=== PATIENT | female | born 1975 | race Caucasian/White ===

== ENCOUNTER 2018-04-12 05:15 | Inpatient (IN) ==
[2018-04-12] MEDS ORDERED: NS 1000 ML 1,000 ML ONE (05:58)
[2018-04-12] MEDS ORDERED: MORPHINE SULFATE INJ 4 MG ONE (05:58)
[2018-04-12] MEDS ORDERED: NS 1000 ML 1,000 ML IV SCH ×2 (06:00→08:11)
[2018-04-12] MEDS ORDERED: MORPHINE SULFATE INJ 4 MG IVP ONE (06:00)
--- NOTE | 2018-04-12 06:37 | DR.GENAD ---
HPI Time Seen Time Seen by Provider: 04/12/18 06:02 PCP Primary Care Physician: CECILE WU HPI Comment HPI Comment: PATIENT IS 43 YEARS OLD WHITE FEMALE WHO DEVELOPED RASH ON HER EXTREMITIES 1 WEEK AGO AND WAS [facility]. SHE WAS TREATED WITH ANTIBIOTICS AND TESTED FOR HIV WHICH WAS NEGATIVE. SHE WAS DISCHARGED HOME WITH MEDS BUT CONTINUED TO HAVE SWELLING, PAIN, AND INTENSE ITCHING. THE RASH IS ALSO GETTING WORSE. SHE IS HERE FOR FURTHER EVALUATION. Complaint/Symptoms Chief Complaint Doctors Comments: PURPURIC RASH AND PURITUS EXTREMITIES TIMES 1 WEEK. Chief Complaint:: PT STATES" I JUST GOT OUT OF THE HOSPITAL IN [place] 3 DAYS AGO WITH A BAD KIDNEY INFECTION I ALSO HAVE BLOOD BLISTERS ON MY LEGS AND MY ARMS IT ABURTO AND ITCHES" Nurses notes reviewed Nurses Notes Review: Yes Source History Provided: Patient Mode of Arrival Mode of Arrival: Wheelchair Timing Onset of Chief Complaint: 04/08/18 Duration Duration: Constant Duration: Weeks Location Location: EXTREMITIES Severity Severity: Severe Modifying Factors Improves:: ITCHING IMPROVES WITH MEDICATION PMH PMH Past Medical History: No Past Surgical History: Yes Surgical History: HAND POLISHER Surgery Past Surgical History Comment: TUBALIAGATION Family History History of Family Medical Conditions: Yes Family Medical History: Diabetes Mellitus, Cancer and Hypertension Social History Does patient currently use any type of tobacco product: No Have you used tobacco products in the last 12 months: No Type of Tobacco Use: None Does any household member use tobacco: No Alcohol Use: None Do you use any recreational Drugs:: No Lives With: Family Lives Where: Home infectious screening In the last 2 months have you had wt loss of >10#?: NO Have you had fever, night sweats or hemotysis?: No Have you traveled outside the country in the last 6 months?: No Isolation: Standard ROS Review of Systems Constitutional: Weakness and Fatigue Eyes: No Symptoms Reported ENTM: No Symptoms Reported Respiratoy: Non-Productive Cough Cardiovascular: No Symptoms Reported Gastrointestinal/Abdominal: No Symptoms Reported Genitourinary: No Symptoms Reported Neurological: Headache, Weakness and Dizziness Musculoskeletal: Joint Pain and Muscle Pain Integumentary: Change in Color, Rash, Itching and Wound Hematologic/Lymphatic: No Symptoms Reported Endocrine: No Symptoms Reported Psychiatric: No Symptoms Reported All Other Systems: Reviewed and Negative PE Vital Signs Vitals: Temperature 97.7 F Pulse Rate [Left Brachial] 93 Pulse Rate 100 Respiratory Rate 20 Blood Pressure [Left Arm] 109/52 Blood Pressure 115/51 O2 Sat by Pulse Oximetry 96 General Limitations: No Limitations General Appearance: Alert and In No Apparent Distress Head Head Exam: Normal Inspection Eyes Eye exam: Normal Appearance, PERRL and EOMI; negative Scleral Icterus and Conjunctival Injection ENT ENT Exam: Normal Exam, Normal Oropharynx, Normal External Ear Exam, Mucous Membranes Dry and TM's Normal Bilaterally External Ear Exam: Normal External Inspection TM/Canal Exam: Bilateral: Normal Nose Exam: Normal Nose Exam Mouth Exam: Normal Inspection Throat Exam: Normal Inspection Neck Neck Exam: Normal Inspection and Trachea Midline; negative Tenderness, Meningismus and Lymphadenopathy Chest Chest Inspection: Normal Inspection and Symmetric Chest Wall Rise Respiratory Respiratory Exam: Normal Lung Sounds Bilat Respiratory Exam: Bilateral: Clear to Auscultation Cardiovascular Cardiovascular Exam: Regular Rate, Normal Rhythm and Normal Heart Sounds Abdominal Exam Abdominal Exam: Normal Inspection, Normal Bowel Sounds and Soft; negative Tenderness Extremities Extremities Exam: Other (PURPURIC RASH EXTREMITIES IN VARIOUS STAGES OF HEALING WITH SWELLING AND TENDERNESS.) Back Back Exam: Normal Inspection Neurologic Neurological Exam: Alert, Oriented X3 and CN II-XII Intact; negative Motor Sensory Deficit Psychiatric Psychiatric Exam: Anxious Skin Skin Exam: Dry, Rash and Erythema MDM Differential Diagnosis Differential Diagnosis: RASH, VASCULITIS, STAPH INFECTION COURSE Treatment Treatment: SEE ORDERS Consultation Consultation Comments: DISCUSSED PATIENT WITH . HE WILL ADMIT PATIENT. Education/Counseling Education/Counseling: Patient Educated On: Diagnosis ROR Labs Reviewed Laboratory Results Reviewed?: Yes Result Diagrams: 04/12/18 06:25 04/12/18 06:25 Laboratory: WBC 13.2 X10^3/uL (3.6-10.0) H 04/12/18 06:25 RBC 4.05 X10^6/uL (3.5-5.4) 04/12/18 06:25 Hgb 12.2 g/dL (12.0-16.0) 04/12/18 06:25 Hct 35.1 % (36.0-47.0) L 04/12/18 06:25 MCV 86.6 fL (80.0-100.0) 04/12/18 06:25 MCH 30.2 pg (27.0-34.0) 04/12/18 06:25 MCHC 34.9 g/dL (33.0-35.0) 04/12/18 06:25 RDW 13.0 % (11.6-16.5) 04/12/18 06:25 Plt Count 134 X10^3/uL (150.0-450.0) L 04/12/18 06:25 MPV 9.2 fL (7.4-11.0) 04/12/18 06:25 Neut % (Auto) 73.9 % (42.0-75.0) 04/12/18 06:25 Lymph % (Auto) 11.4 % (21.0-51.0) L 04/12/18 06:25 [place] % (Auto) 6.6 % (0.0-13.0) 04/12/18 06:25 Eos % (Auto) 7.0 % (0.9-2.9) H 04/12/18 06:25 Baso % (Auto) 1.1 % (0.2-1.0) H 04/12/18 06:25 Neut # (Auto) 9.8 x10^3/uL (2.2-4.8) H 04/12/18 06:25 Lymph # (Auto) 1.5 X10^3/uL (1.3-2.9) 04/12/18 06:25 [place] # (Auto) 0.9 x10^3/uL (0.3-0.8) H 04/12/18 06:25 Eos # (Auto) 0.9 x10^3/uL (0.0-0.2) H 04/12/18 06:25 Baso # (Auto) 0.1 X10^3/uL (0.0-0.1) 04/12/18 06:25 Absolute Nucleated RBC 0.0 /100WBC 04/12/18 06:25 ESR 65 MM/HOUR (0-20) H 04/12/18 06:25 INR Target Range - 04/12/18 06:25 INR 1.25 (0.8-1.3) 04/12/18 06:25 Sodium 136 mmol/L (136-145) 04/12/18 06:25 Corrected Sodium TNP 04/12/18 06:25 Potassium 3.3 mmol/L (3.5-5.1) L 04/12/18 06:25 Chloride 101 mmol/L (98-107) 04/12/18 06:25 Carbon Dioxide 20.3 mmol/L (21-32) L 04/12/18 06:25 BUN 15 mg/dL (7-18) 04/12/18 06:25 Creatinine 2.28 mg/dL (0.55-1.02) H 04/12/18 06:25 Est GFR (MDRD) Af Amer 30 (>60) L 04/12/18 06:25 Est GFR (MDRD) Non-Af 25 (>60) L 04/12/18 06:25 Glucose 85 mg/dL (65-99) 04/12/18 06:25 Lactic Acid 1.1 mmol/L (0.4-2.0) 04/12/18 06:25 Calcium 8.5 mg/dL (8.5-10.1) 04/12/18 06:25 Corrected Calcium 9.7 mg/dL (8.5-10.1) 04/12/18 06:25 Total Bilirubin 0.70 mg/dL (0.2-1.0) 04/12/18 06:25 AST 39 Units/L (15-37) H 04/12/18 06:25 ALT 28 Units/L (12-78) 04/12/18 06:25 Alkaline Phosphatase 79 Units/L (46-116) 04/12/18 06:25 Creatine Kinase 209 Units/L (26-192) H 04/12/18 06:25 C-Reactive Protein 92.50 mg/L (0-3.0) H 04/12/18 06:25 Total Protein 7.1 g/dL (6.4-8.2) 04/12/18 06:25 Albumin 2.5 g/dL (3.4-5.0) L 04/12/18 06:25 Globulin 4.6 g/dL (2.5-4.5) H 04/12/18 06:25 Albumin/Globulin Ratio 0.5 Ratio (1.1-2.1) L 04/12/18 06:25 Amylase 40 Units/L (25-115) 04/12/18 06:25 Lipase 112 Units/L (73-393) 04/12/18 06:25 Specimen Type Clean catch urine 04/12/18 06:09 Urine Color [place] (YELLOW) 04/12/18 06:09 Urine Appearance Slightly hazy (CLEAR) 04/12/18 06:09 Urine pH Cancelled 04/12/18 06:09 Ur Specific [place] Cancelled 04/12/18 06:09 Urine Protein Cancelled 04/12/18 06:09 Urine Glucose (UA) Cancelled 04/12/18 06:09 Urine Ketones Cancelled 04/12/18 06:09 Urine Occult Blood Cancelled 04/12/18 06:09 Urine Nitrite Cancelled 04/12/18 06:09 Urine Bilirubin Cancelled 04/12/18 06:09 Urine Urobilinogen Cancelled 04/12/18 06:09 Ur Leukocyte Esterase Cancelled 04/12/18 06:09 Urine RBC 3-5 /HPF (NONE SEEN) 04/12/18 06:09 Urine WBC 5-10 /HPF (NONE SEEN) 04/12/18 06:09 Ur Squamous Epith Cells Many /HPF (NEGATIVE) 04/12/18 06:09 Amorphous Sediment 1+ /HPF (NEGATIVE) 04/12/18 06:09 Urine Bacteria Trace /HPF (NEGATIVE) 04/12/18 06:09 Ur Culture Indicated? No/not indicated 04/12/18 06:09 Urine Opiates Screen Negative (NEG=<300) 04/12/18 06:09 Urine Methadone Screen Negative (NEG=<300) 04/12/18 06:09 Ur Barbiturates Screen Negative (NEG=<200) 04/12/18 06:09 Ur Phencyclidine Scrn Negative (NEG=<25) 04/12/18 06:09 Ur Amphetamines Screen Positive (NEG=<1000) A 04/12/18 06:09 U Benzodiazepines Scrn Negative (NEG=<200) 04/12/18 06:09 Urine Cocaine Screen Negative (NEG=<300) 04/12/18 06:09 U Marijuana (THC) Screen Negative (NEG=<50) 04/12/18 06:09 Diagnosis Discharge Problem: Vasculitis
[2018-04-12 06:45] LABS: BASOPHILS # (AUTO) 0.1 X10^3/uL (0.0-0.1); BASOPHILS % (AUTO) 1.1 % (0.2-1.0); EOSINOPHILS # (AUTO) 0.9 x10^3/uL (0.0-0.2); HEMATOCRIT 35.1 % (36.0-47.0); HEMOGLOBIN 12.2 g/dL (12.0-16.0); LYMPHOCYTES # (AUTO) 1.5 X10^3/uL (1.3-2.9); LYMPHOCYTES % (AUTO) 11.4 % (21.0-51.0); MEAN CORPUSCULAR HEMOGLOBIN 30.2 pg (27.0-34.0); MEAN CORPUSCULAR HGB CONC 34.9 g/dL (33.0-35.0); MEAN CORPUSCULAR VOLUME 86.6 fL (80.0-100.0); MEAN PLATELET VOLUME 9.2 fL (7.4-11.0); MONOCYTES # (AUTO) 0.9 x10^3/uL (0.3-0.8); MONOCYTES % (AUTO) 6.6 % (0.0-13.0); NEUTROPHILS # (AUTO) 9.8 x10^3/uL (2.2-4.8); NEUTROPHILS % (AUTO) 73.9 % (42.0-75.0); PLATELET COUNT 134 X10^3/uL (150.0-450.0); RED BLOOD COUNT 4.05 X10^6/uL (3.5-5.4); WHITE BLOOD COUNT 13.2 X10^3/uL (3.6-10.0)
[2018-04-12 06:54] LABS: ALANINE AMINOTRANSFERASE 28 Units/L (12-78); ALBUMIN 2.5 g/dL (3.4-5.0); ALKALINE PHOSPHATASE 79 Units/L (46-116); ASPARTATE AMINO TRANSFERASE 39 Units/L (15-37); BLOOD UREA NITROGEN 15 mg/dL (7-18); CALCIUM 8.5 mg/dL (8.5-10.1); CARBON DIOXIDE 20.3 mmol/L (21-32); CHLORIDE 101 mmol/L (98-107); COR CA(FOR HYPOALB) 9.7 mg/dL (8.5-10.1); CREATININE 2.28 mg/dL (0.55-1.02); SODIUM 136 mmol/L (136-145); TOTAL PROTEIN 7.1 g/dL (6.4-8.2); eGFR NON BLACK RACES 25 (>60)
[2018-04-12 07:01] LABS: APPEARANCE,URINE SLIGHTLY HAZY (CLEAR); BACTERIA,URINE TRACE /HPF (NEGATIVE); COLOR,URINE ORANGE (YELLOW); SQUAMOUS EPITHELIAL CELL,UR MANY /HPF (NEGATIVE)
[2018-04-12 07:01] LABS: LACTIC ACID 1.1 mmol/L (0.4-2.0)
[2018-04-12 07:02] LABS: AMORPHOUS SEDIMENT,UR 1+ /HPF (NEGATIVE)
[2018-04-12] MEDS ORDERED: SOLU-Medrol 125 MG VIAL ONE (07:10)
[2018-04-12] MEDS ORDERED: BENADRYL INJ 50 MG VIAL ONE (07:11)
[2018-04-12] MEDS ORDERED: BENADRYL INJ 50 MG VIAL IVP ONE (07:22)
[2018-04-12] MEDS ORDERED: SOLU-Medrol 125 MG VIAL IVP ONE (07:22)
[2018-04-12] MEDS ORDERED: TORADOL 60 MG VIAL IVP PRN (08:11)
[2018-04-12] MEDS ORDERED: TORADOL 15 MG VIAL IVP PRN (08:13)
[2018-04-12 08:35] LABS: AMYLASE 40 Units/L (25-115); LIPASE 112 Units/L (73-393)
[2018-04-12] MEDS ORDERED: NS 500 ML IV 500 ML IV ONE (09:29)
[2018-04-12] MEDS ORDERED: ZITHROMAX INJ 500 MG VIAL 500 MG in NS 250 ML IV 250 ML IV SCH (09:55)
[2018-04-12] MEDS ORDERED: LEVAQUIN PREMIX IV 500 MG 500 MG/100 ML BAG IV SCH (10:00)
[2018-04-12] MEDS ORDERED: ROCEPHIN VIAL 1 GRAM IVP SCH (10:00)
[2018-04-12] MEDS ORDERED: XYLOCAINE 2 % (PLAIN) ONE (11:13)
--- NOTE | 2018-04-12 11:35 | RAD ---
Chest, two views Indication: Fever Comparison: None Findings: The heart is normal in size. No focal infiltrate, effusion or pneumothorax is identified. T here is no acute osseous abnormality. Impression: No acute cardiopulmonary abnormality. Reported By:
[2018-04-12] MEDS: NS 1000 ML 1,000 ML IV SCH ×2 (11:36→23:45)
--- NOTE | 2018-04-12 11:51 | RAD ---
Chest, one view Indication: Central line placement Comparison: Radiograph from earlier today Findings: A left subclavian CVL terminates over the cavoatrial junction without pneumothorax. The hea rt is normal in size. No focal infiltrate or significant effusion is identified. There is no acute os seous abnormality. Impression: Satisfactory left subclavian CVL placement without pneumothorax. Reported By:
[2018-04-12 12:34] LABS: BILIRUBIN,URINE NEGATIVE (NEGATIVE); BLOOD/HEMOGLOBIN,URINE 2+ (NEGATIVE); GLUCOSE, URINE NEGATIVE (NEGATIVE); KETONES,URINE NEGATIVE (NEGATIVE); LEUKOCYTE ESTERASE ,URINE NEGATIVE (NEGATIVE); NITRITES,URINE POSITIVE (NEGATIVE); PROTEIN,URINE 1+ (NEGATIVE); UROBILINOGEN,URINE NORMAL (NORMAL)
[2018-04-12 12:49] LABS: APPEARANCE,URINE HAZY (CLEAR); BACTERIA,URINE 1+ /HPF (NEGATIVE); COLOR,URINE YELLOW (YELLOW); SQUAMOUS EPITHELIAL CELL,UR FEW /HPF (NEGATIVE)
[2018-04-12 13:16] VITALS: BMI 29.9
--- NOTE | 2018-04-12 13:35 | CT ---
CT abdomen and pelvis without contrast Indication: 'Fever, shortness of breath, vasculitis, purpural rash over body' Technique: Helical CT images of the abdomen and pelvis were obtained without IV contrast. Reformatted images in the coronal and sagittal planes were also generated for review. Comparison: None Findings: Lung bases are clear. There are bilateral L5 pars defects with moderate associated spondylo sis and grade 2 anterolisthesis of L5 on S1. No aggressive osseous lesions are identified. Within the limits of a noncontrast exam, the unenhanced liver, gallbladder, spleen, pancreas, adrenal s and kidneys are unremarkable. There is no urolithiasis or obstructive uropathy. There is enteric co ntrast throughout the GI tract to the level of the proximal descending colon. There is no bowel obstr uction or gross inflammation. The appendix is normal. The abdominal aorta is normal in caliber. The u rinary bladder is normal without stones. The uterus and ovaries are present. There is trace free pelv ic fluid, likely physiologic. No significant free flowing ascites, free air or bulky lymphadenopathy is identified Impression: No acute inflammatory process identified within the abdomen or pelvis, within the limitations of a no ncontrast exam. 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 Reported By:
--- NOTE | 2018-04-12 13:42 | CT ---
CT CHEST WITHOUT IV CONTRAST CLINICAL HISTORY: 43-year-old female with fever and shortness of breath. COMPARISON: None. TECHNIQUE: Contiguous axial CT images were obtained of the chest without contrast and reformatted in the sagittal and coronal planes. FINDINGS: Thyroid and base of the neck are unremarkable for study without contrast. Heart is normal in size without pericardial effusion. Left subclavian approach central venous cathete r with distal tip at the superior cavoatrial junction. No focal areas of consolidation are identified in the lungs. No pleural effusion or pneumothorax is s een. No pathologically enlarged lymph nodes are identified in the mediastinum or liz, though detection is difficult in the absence of intravenous contrast. Arteriovascular structures are unremarkable for study without contrast. No fracture, dislocation or abnormal lytic or blastic bone lesions are identified. See CT abdomen pelvis performed this date for complete description of the same. IMPRESSION: 1. No acute intrathoracic process. Reported By:
[2018-04-12] MEDS ORDERED: ZOSYN VIAL 3.375 GRAMS 3.375 G in NS 100 ML IV + SPIKE MINIBAG* 100 ML IV SCH (14:00)
[2018-04-12] MEDS: SOLU-Medrol 125 MG VIAL IVP SCH ×2 (14:05→21:31)
--- NOTE | 2018-04-12 14:44 | MRI ---
MRI OF THE ABDOMEN WITHOUT IV CONTRAST - MRCP PROTOCOL Clinical indication: Rash and cholelithiasis Procedure: Multiplanar multi sequence MRI of the abdomen were obtained without the administration of intravenous contrast according to standard departmental MRCP protocol. Comparisons: CT chest abdomen pelvis performed after this examination Findings: No significant ascites. Liver is normal size. Spleen measuring over 14 cm.Gallbladder is present. No gallstones.No filling defects within the common bile duct. Common bile duct measures 9 mm. No intra hepatic ductal dilatation. Ducts taper normally to the ampulla Main pancreatic duct is grossly unrema rkable in size . No large pancreatic masses. Adrenal glands are grossly normal. Kidneys demonstrate n ormal cortical medullary differentiation. No hydronephrosis. Visualized bowel is grossly unremarkable . No suspicious lymph nodes. Impression: 1. No source of patient's rash is identified on this examination. 2. No evidence of cholelithiasis. Mild common bile duct dilation without evidence of intraluminal sto ne or definite large obstructing mass. 3. Mild splenomegaly. MRCP is a focused examination designed specifically to evaluate the bile ducts. Ability to evaluate other organs and detection of parenchymal lesions and masses, including many etiologies for duct dila tation such as pancreatic head/ampullary masses, is limited. Reported By:
[2018-04-12] MEDS: BENADRYL INJ 50 MG VIAL IV PRN (17:15)
--- NOTE | 2018-04-12 17:37 | DR.H&P ---
H&P - History & Physical for Day of: H&P Date: 04/12/18 - Chief Complaint Chief Complaint: RODRIGUEZ, RASH - History of Present Illness History of Present Illness: 43WF ER ADMISSION AFTER PRESENTED WITH CO RODRIGUEZ AND DIFFUSE RASH TO ENTIRE BODY WORSE OVER THE PAST WEEK. PT STATES SHE HAD ONSET OF RODRIGUEZ AND FEVER WITH "HEAT RASH" TO TO UPPER ARMS, SEEN IN ER IN [place] IN [facility] DIAGNOSED WITH UTI AND GIVEN KEFLEX. PT STATES RASH WORSENED AND CONTINUED WITH FEVER UP TO 104. PT WENT TO [facility], ADMITTED FOR IV ATBX LEVAQUIN THERAPY AND GENTAMICIN ON 04/05. PT HAS DIFFUSE PAPULAR RASH WITH PUPURA, DIFFSE DARK PURPLE DISCOLOR TO BILATERAL THIGHS, UTI AND CO RODRIGUEZ. PT ADMITTED WITH CONTACT PRECAUTIONS, STARTED ON IV ZITHROMAX ANX ZOSYN IN ER. PT DENIES ANY HX OF DM, HTN, CAD. PT ADMITS TO SNORTING "ONE LINE OF METH" IN THE PAST 1-2 DAYS. DENIES IV DRUG USE RECENTLY, STATES OVER TWENTY YEARS. - Past Surgical History Surgical History: GRAIN GRADER Surgery, Other - Family History Family Medical History: Diabetes Mellitus, Cancer, Hypertension - Social History Does patient currently use any type of tobacco product: No Have you used tobacco products in the last 12 months: No Type of Tobacco Use: None Does any household member use tobacco: Yes (FRIEND) Alcohol Use: None Drug Use: Methamphetamine - Medications Home Medications: No Known Drug Allergies Allergy (Verified 04/12/18 05:21) CONTINUE taking the following medications cephalexin 500 ng PO QID 04/12/18 [History] levofloxacin [Levaquin] 500 mg PO DAILY 04/12/18 [History] ondansetron HCl [Zofran] 4 mg PO TID PRN 04/12/18 [History] - Review of Systems Constitutional: Fever, Chills, Weakness Eyes: No Symptoms Reported ENT: No Symptoms Reported Respiratory: No Symptoms Reported Cardiovascular: denies: Chest Pain, Palpitations Gastrointestinal: denies: No Symptoms Reported, Nausea, Vomiting, Diarrhea Genitourinary: denies: No Symptoms Reported Musculoskeletal: Leg Pain Skin: Rash, Bruising, Ecchymosis - Physical Exam Vital Signs: Temperature 97.9 F Pulse Rate [Left Brachial] 84 Pulse Rate 100 Respiratory Rate 20 Blood Pressure [Left Arm] 104/65 Blood Pressure 115/51 O2 Sat by Pulse Oximetry 96 Oriented: Normal Eyes: Normal Ear: Normal Nose: Normal Throat: Normal Respiratory: RLL Diminished, LLL Diminished Cardiovascular: Tachycardia, Edema : Normal Auscultation: Bowel Sounds: Normal Palpation: Normal Tenderness: RUQ, Epigastric, Mild Skin: Decreased Turgur, Rash, Maculopapular, Vesicular, Petechial Musculoskeletal: Thigh, Knee, Leg, Swelling, Tender Psychiatric: Anxiety Affect: Anxious Speech Pattern: Clear, Appropriate - Assessment/Plan (1) Diffuse papular rash Status: Acute Plan: ADMIT, PT RECENTLY ADMITTED AT [facility], RECORDS OBTAINED AND REVEIWED. PT PREVIOUSLY HAD CT ABDPELVIS REVEALING FINDINGS CONSISTENT WITH ACUTE PYELONEPHRITIS, CHOLECYSTITIS AND PNEUMONIA. PT GIVEN ZYSYN AND ZITHROMAX IN ER. D/C ZOSYN, STARTED ON ROCEPHIN AND LEVAQUIN. 500CCNS BOLUS THEN 100CC/HR, CONTACT PRECAUTIONS, AMYLASE AND LIPASE NORMAL, PT NPO. CT CHEST, ABD AND PELVIS WITH ORAL CONTRAST ORDERED, BLOOD CULTURES COLLECTED. CRP AND SED RATE ON ADMISSION, UA WITH UC. OTAIN RECORDS FROM [facility] ER VISIT ON 04/02 (2) Headache Status: Acute (3) UTI (urinary tract infection) Status: Acute (4) Purpura Status: Acute (5) History of unexplained fever Status: Acute - Allergies Allergies/Adverse Reactions: Allergies Allergy/AdvReac Type Severity Reaction Status Date / Time No Known Drug Allergies Allergy Verified 04/12/18 05:21
[2018-04-12] MEDS: MILK OF MAGNESIA PO SCH (20:35)
[2018-04-12] MEDS: COLACE CAP 100 MG PO SCH (20:36)
[2018-04-12] MEDS: PHENERGAN TAB 25 MG PO PRN (20:36)
[2018-04-12] MEDS ORDERED: TYLENOL 325 MG TAB PO PRN (21:51)
[2018-04-12] MEDS: BENADRYL INJ 50 MG VIAL IV SCH (22:03)
[2018-04-13] MEDS: BENADRYL INJ 50 MG VIAL IV SCH ×2 (05:00→09:10)
[2018-04-13] MEDS: SOLU-Medrol 125 MG VIAL IVP SCH ×3 (05:27→21:26)
[2018-04-13] MEDS: MILK OF MAGNESIA PO SCH ×2 (09:10→21:26)
[2018-04-13 09:33] LABS: BASOPHILS # (AUTO) 0.1 X10^3/uL (0.0-0.1); BASOPHILS % (AUTO) 0.5 % (0.2-1.0); HEMATOCRIT 31.6 % (36.0-47.0); HEMOGLOBIN 10.9 g/dL (12.0-16.0); LYMPHOCYTES # (AUTO) 0.8 X10^3/uL (1.3-2.9); LYMPHOCYTES % (AUTO) 6.1 % (21.0-51.0); MEAN CORPUSCULAR HEMOGLOBIN 30.4 pg (27.0-34.0); MEAN CORPUSCULAR HGB CONC 34.6 g/dL (33.0-35.0); MEAN CORPUSCULAR VOLUME 87.9 fL (80.0-100.0); MEAN PLATELET VOLUME 7.8 fL (7.4-11.0); MONOCYTES # (AUTO) 0.4 x10^3/uL (0.3-0.8); MONOCYTES % (AUTO) 2.9 % (0.0-13.0); NEUTROPHILS # (AUTO) 11.2 x10^3/uL (2.2-4.8); NEUTROPHILS % (AUTO) 90.5 % (42.0-75.0); PLATELET COUNT 191 X10^3/uL (150.0-450.0); RED CELL DISTRIBUTION WIDTH 12.9 % (11.6-16.5); WHITE BLOOD COUNT 12.4 X10^3/uL (3.6-10.0)
[2018-04-13 09:49] LABS: ALBUMIN 2.2 g/dL (3.4-5.0); CALCIUM 7.7 mg/dL (8.5-10.1); CARBON DIOXIDE 21.6 mmol/L (21-32); COR CA(FOR HYPOALB) 9.1 mg/dL (8.5-10.1); CREATININE 1.65 mg/dL (0.55-1.02); TOTAL PROTEIN 6.4 g/dL (6.4-8.2)
[2018-04-13 09:58] LABS: BAND NEUTROPHILS % 3 % (0-10); PLATELET MORPHOLOGY COMMENT NORMAL (NORMAL)
[2018-04-13] MEDS: NS 1000 ML 1,000 ML IV SCH ×2 (11:57→21:27)
--- NOTE | 2018-04-13 14:04 | PCM.PROG ---
Progress Note - Progress Note for Day of Date of Exam: 04/13/18 - Subjective Subjective: 43 WF ER ADMISSION ON 04/12 WITH UTI, DIFFUSE RASH WITH PURPURA. PT REPORTS TAKING BACTRIM SHE HAD AT HOME PRIOR TO ER VISIT AT [facility] ON 04/02, DUE TO CONCERN FOR POSSIBLE MARGARITA VANDANA SYNDROME, PT ON IV STEROIDS AND IV BENADRYL. PT HAD UA ON ADMISSION WITH CULTURE PENDING. PT CURRENTLY ON IV ATBX, GENTLE HYDRATION, WBC IMPROVED TO 12.4, BUN 22/CREAT 1.65 CRP IMPROVED FROM 92.5 ONADMISSION TO 51 THIS AM, PT AFEBRILE, DENIES RODRIGUEZ THIS AM OR NUCHAL RIGIDITY. RPR COLLECTED THIS AM - Past Medical Family Social History Past Med/Fam/Surg Hx: No changes since H&P Allergies: Allergies No Known Drug Allergies Allergy (Verified 04/12/18 05:21) - Review of Systems ROS: No change since H&P - Vital Signs and I&O's Vital Signs: Temperature 97.8 F Pulse Rate [Left Brachial] 76 Pulse Rate 100 Respiratory Rate 18 Blood Pressure [Left Arm] 110/65 Blood Pressure 115/51 O2 Sat by Pulse Oximetry 90 Intake and Output: Intake & Output 04/11/18 04/12/18 04/13/18 04/14/18 11:59 11:59 11:59 11:59 Intake Total 2552 / 2552 Output Total 300 / 300 Balance 2252 / 2252 - Physical Exam Oriented: Normal Eyes: Normal Ear: Normal Nose: Normal Throat: Normal Respiratory: Diminished Cardiovascular: Tachycardia, Edema : Normal Auscultation: Bowel Sounds: Normal Tenderness: RUQ, Epigastric, Mild Skin: Decreased Turgur, Rash, Maculopapular, Vesicular, Petechial Musculoskeletal: Thigh, Knee, Leg, Swelling, Tender Psychiatric: Anxiety Affect: Anxious Speech Pattern: Clear, Appropriate - Laboratory and Diagnostics Result Diagrams: 04/13/18 09:25 04/13/18 09:25 Labs: 04/12/18 12:00 Urine,Clean Catch Urine Culture - Preliminary Laboratory WBC 12.4 X10^3/uL (3.6-10.0) H 04/13/18 09:25 RBC 3.60 X10^6/uL (3.5-5.4) 04/13/18 09:25 Hgb 10.9 g/dL (12.0-16.0) L 04/13/18 09:25 Hct 31.6 % (36.0-47.0) L 04/13/18 09:25 MCV 87.9 fL (80.0-100.0) 04/13/18 09:25 MCH 30.4 pg (27.0-34.0) 04/13/18 09:25 MCHC 34.6 g/dL (33.0-35.0) 04/13/18 09:25 RDW 12.9 % (11.6-16.5) 04/13/18 09:25 Plt Count 191 X10^3/uL (150.0-450.0) 04/13/18 09:25 Plt Count Comment Adequate (ADEQUATE) 04/13/18 09:25 MPV 7.8 fL (7.4-11.0) 04/13/18 09:25 Neut % (Auto) 90.5 % (42.0-75.0) H 04/13/18 09:25 Lymph % (Auto) 6.1 % (21.0-51.0) L 04/13/18 09:25 [place] % (Auto) 2.9 % (0.0-13.0) 04/13/18 09:25 Eos % (Auto) 0.0 % (0.9-2.9) L 04/13/18 09:25 Baso % (Auto) 0.5 % (0.2-1.0) 04/13/18 09:25 Neut # (Auto) 11.2 x10^3/uL (2.2-4.8) H 04/13/18 09:25 Lymph # (Auto) 0.8 X10^3/uL (1.3-2.9) L 04/13/18 09:25 [place] # (Auto) 0.4 x10^3/uL (0.3-0.8) 04/13/18 09:25 Eos # (Auto) 0.0 x10^3/uL (0.0-0.2) 04/13/18 09:25 Baso # (Auto) 0.1 X10^3/uL (0.0-0.1) 04/13/18 09:25 Absolute Nucleated RBC 0.0 /100WBC 04/13/18 09:25 Total Counted 100 04/13/18 09:25 Neutrophils % (Manual) 93 % (39-76) H 04/13/18 09:25 Band Neutrophils % 3 % (0-10) 04/13/18 09:25 Lymphocytes % (Manual) 3 % (13-43) L 04/13/18 09:25 Monocytes % (Manual) 1 % (4-9) L 04/13/18 09:25 Plt Morphology Comment Normal (NORMAL) 04/13/18 09:25 RBC Morphology Normal (NORMAL) 04/13/18 09:25 ESR 37 MM/HOUR (0-20) H 04/13/18 09:25 INR Target Range - 04/12/18 06:25 INR 1.25 (0.8-1.3) 04/12/18 06:25 Sodium 140 mmol/L (136-145) 04/13/18 09:25 Corrected Sodium 141 mmol/L (136-145) 04/13/18 09:25 Potassium 4.0 mmol/L (3.5-5.1) 04/13/18 09:25 Chloride 108 mmol/L (98-107) H 04/13/18 09:25 Carbon Dioxide 21.6 mmol/L (21-32) 04/13/18 09:25 BUN 22 mg/dL (7-18) H 04/13/18 09:25 Creatinine 1.65 mg/dL (0.55-1.02) H 04/13/18 09:25 Est GFR (MDRD) Af Amer 44 (>60) L 04/13/18 09:25 Est GFR (MDRD) Non-Af 36 (>60) L 04/13/18 09:25 Glucose 139 mg/dL (65-99) H 04/13/18 09:25 Lactic Acid 1.1 mmol/L (0.4-2.0) 04/12/18 06:25 Calcium 7.7 mg/dL (8.5-10.1) L 04/13/18 09:25 Corrected Calcium 9.1 mg/dL (8.5-10.1) 04/13/18 09:25 Total Bilirubin 0.40 mg/dL (0.2-1.0) 04/13/18 09:25 AST 35 Units/L (15-37) 04/13/18 09:25 ALT 29 Units/L (12-78) 04/13/18 09:25 Alkaline Phosphatase 94 Units/L (46-116) 04/13/18 09:25 Creatine Kinase 209 Units/L (26-192) H 04/12/18 06:25 C-Reactive Protein 51.10 mg/L (0-3.0) H 04/13/18 09:25 Total Protein 6.4 g/dL (6.4-8.2) 04/13/18 09:25 Albumin 2.2 g/dL (3.4-5.0) L 04/13/18 09:25 Globulin 4.2 g/dL (2.5-4.5) 04/13/18 09:25 Albumin/Globulin Ratio 0.5 Ratio (1.1-2.1) L 04/13/18 09:25 Amylase 40 Units/L (25-115) 04/12/18 06:25 Lipase 112 Units/L (73-393) 04/12/18 06:25 Specimen Type Catherized urine 04/12/18 12:00 Urine Color Yellow (YELLOW) 04/12/18 12:00 Urine Appearance Hazy (CLEAR) 04/12/18 12:00 Urine pH 6.0 (5.0 - 8.0) 04/12/18 12:00 Ur Specific [place] 1.015 (1.000-1.030) 04/12/18 12:00 Urine Protein 1+ (NEGATIVE) 04/12/18 12:00 Urine Glucose (UA) Negative (NEGATIVE) 04/12/18 12:00 Urine Ketones Negative (NEGATIVE) 04/12/18 12:00 Urine Occult Blood 2+ (NEGATIVE) 04/12/18 12:00 Urine Nitrite Positive (NEGATIVE) 04/12/18 12:00 Urine Bilirubin Negative (NEGATIVE) 04/12/18 12:00 Urine Urobilinogen Normal (NORMAL) 04/12/18 12:00 Ur Leukocyte Esterase Negative (NEGATIVE) 04/12/18 12:00 Urine RBC 3-5 /HPF (NONE SEEN) 04/12/18 12:00 Urine WBC 5-10 /HPF (NONE SEEN) 04/12/18 12:00 Ur Squamous Epith Cells Few /HPF (NEGATIVE) 04/12/18 12:00 Amorphous Sediment 1+ /HPF (NEGATIVE) 04/12/18 06:09 Urine Bacteria 1+ /HPF (NEGATIVE) 04/12/18 12:00 Ur Culture Indicated? No/not indicated 04/12/18 12:00 Urine Opiates Screen Negative (NEG=<300) 04/12/18 06:09 Urine Methadone Screen Negative (NEG=<300) 04/12/18 06:09 Ur Barbiturates Screen Negative (NEG=<200) 04/12/18 06:09 Ur Phencyclidine Scrn Negative (NEG=<25) 04/12/18 06:09 Ur Amphetamines Screen Positive (NEG=<1000) A 04/12/18 06:09 U Benzodiazepines Scrn Negative (NEG=<200) 04/12/18 06:09 Urine Cocaine Screen Negative (NEG=<300) 04/12/18 06:09 U Marijuana (THC) Screen Negative (NEG=<50) 04/12/18 06:09 RPR Nonreactive (NONREACTIVE) 04/13/18 09:25 - Plan (1) Diffuse papular rash Status: Acute Plan: IV HYDRATION. IV STEROIDS, IV BENADRYL FOR TREATMENT OF POSSIBLE ADVERSE DRUG REASTION, MARGARITA VANDANA SYNDROM. CONTINUE IV ATBX FOR UTI, STRICT I & OS, REPEAT AM LABS. CULTURE PENDING FORM ADMISSION, BP CONTROL. CONTINUE CONTACT PRECAUTIONS (2) Headache Status: Acute (3) UTI (urinary tract infection) Status: Acute (4) Purpura Status: Acute (5) History of unexplained fever Status: Acute
[2018-04-13] MEDS: BENADRYL INJ 50 MG VIAL IV PRN ×2 (14:14→21:27)
[2018-04-13] MEDS: COLACE CAP 100 MG PO SCH (21:27)
[2018-04-14 05:10] LABS: BASOPHILS % (AUTO) 0.2 % (0.2-1.0); HEMATOCRIT 29.8 % (36.0-47.0); HEMOGLOBIN 10.3 g/dL (12.0-16.0); LYMPHOCYTES # (AUTO) 0.7 X10^3/uL (1.3-2.9); LYMPHOCYTES % (AUTO) 6.9 % (21.0-51.0); MEAN CORPUSCULAR HEMOGLOBIN 30.9 pg (27.0-34.0); MEAN CORPUSCULAR HGB CONC 34.8 g/dL (33.0-35.0); MEAN CORPUSCULAR VOLUME 88.9 fL (80.0-100.0); MONOCYTES # (AUTO) 0.4 x10^3/uL (0.3-0.8); MONOCYTES % (AUTO) 3.3 % (0.0-13.0); NEUTROPHILS # (AUTO) 9.6 x10^3/uL (2.2-4.8); NEUTROPHILS % (AUTO) 89.6 % (42.0-75.0); PLATELET COUNT 128 X10^3/uL (150.0-450.0); RED BLOOD COUNT 3.35 X10^6/uL (3.5-5.4); RED CELL DISTRIBUTION WIDTH 13.4 % (11.6-16.5); WHITE BLOOD COUNT 10.7 X10^3/uL (3.6-10.0)
[2018-04-14 05:29] LABS: ALBUMIN 2.1 g/dL (3.4-5.0); CALCIUM 7.8 mg/dL (8.5-10.1); CARBON DIOXIDE 22.7 mmol/L (21-32); COR CA(FOR HYPOALB) 9.3 mg/dL (8.5-10.1); CREATININE 1.43 mg/dL (0.55-1.02); TOTAL PROTEIN 6.2 g/dL (6.4-8.2)
[2018-04-14] MEDS: NS 1000 ML 1,000 ML IV SCH ×4 (06:26→23:56)
[2018-04-14] MEDS: SOLU-Medrol 125 MG VIAL IVP SCH ×3 (06:34→21:37)
[2018-04-14] MEDS: MILK OF MAGNESIA PO SCH ×2 (09:39→20:22)
[2018-04-14 15:35] LABS: RHEUMATOID FACTOR NEGATIVE (NEGATIVE)
[2018-04-14] MEDS: BENADRYL INJ 50 MG VIAL IV PRN (20:22)
[2018-04-14] MEDS: COLACE CAP 100 MG PO SCH (20:22)
[2018-04-14] MEDS: MAGIC MOUTHWASH MT SCH (22:10)
[2018-04-14] MEDS ORDERED: NORCO 5/325 MG TAB PO PRN (22:16)
[2018-04-14] MEDS: PHENERGAN TAB 25 MG PO PRN (22:50)
[2018-04-15] MEDS: SOLU-Medrol 125 MG VIAL IVP SCH (05:36)
[2018-04-15] MEDS: NS 1000 ML 1,000 ML IV SCH (05:37)
[2018-04-15 06:29] LABS: BASOPHILS % (AUTO) 0.4 % (0.2-1.0); HEMATOCRIT 32.4 % (36.0-47.0); HEMOGLOBIN 11.3 g/dL (12.0-16.0); LYMPHOCYTES # (AUTO) 0.8 X10^3/uL (1.3-2.9); LYMPHOCYTES % (AUTO) 7.8 % (21.0-51.0); MEAN CORPUSCULAR HEMOGLOBIN 30.7 pg (27.0-34.0); MEAN CORPUSCULAR HGB CONC 34.8 g/dL (33.0-35.0); MEAN CORPUSCULAR VOLUME 88.2 fL (80.0-100.0); MEAN PLATELET VOLUME 9.2 fL (7.4-11.0); MONOCYTES # (AUTO) 0.6 x10^3/uL (0.3-0.8); MONOCYTES % (AUTO) 5.9 % (0.0-13.0); NEUTROPHILS % (AUTO) 85.9 % (42.0-75.0); PLATELET COUNT 102 X10^3/uL (150.0-450.0); RED BLOOD COUNT 3.68 X10^6/uL (3.5-5.4); RED CELL DISTRIBUTION WIDTH 13.2 % (11.6-16.5); WHITE BLOOD COUNT 10.5 X10^3/uL (3.6-10.0)
[2018-04-15 06:35] LABS: ALBUMIN 2.3 g/dL (3.4-5.0); CALCIUM 7.5 mg/dL (8.5-10.1); CARBON DIOXIDE 25.1 mmol/L (21-32); COR CA(FOR HYPOALB) 8.9 mg/dL (8.5-10.1); CREATININE 1.26 mg/dL (0.55-1.02); TOTAL PROTEIN 6.8 g/dL (6.4-8.2)
[2018-04-15] MEDS ORDERED: POTASSIUM CHLORIDE LIQ 20 MEQ UDC PO PRN (07:45)
[2018-04-15] MEDS ORDERED: MICRO K EXTEN CAP 10 MEQ PO PRN (07:45)
[2018-04-15] MEDS ORDERED: POTASSIUM CHL 60 MEQ/NS 0.45% 500 ML IV PRN (07:45)
[2018-04-15] MEDS ORDERED: K-DUR TAB 20 MEQ PO PRN (07:45)
[2018-04-15] MEDS ORDERED: KLOR-CON PO PRN (07:45)
[2018-04-15] MEDS ORDERED: K-RIDER 10 MEQ/NS 100 ML 10 MEQ/100 ML BAG IV PRN (07:45)
[2018-04-15] MEDS ORDERED: POTASSIUM CHL 40 MEQ/NS 0.45% 500 ML IV PRN (07:45)
[2018-04-15] MEDS: MILK OF MAGNESIA PO SCH (09:15)
[2018-04-15] MEDS: MAGIC MOUTHWASH MT SCH ×2 (09:19→12:57)
[2018-04-15 12:07] VITALS: BP 140/80
[2018-04-18 06:37] LABS: ANTI-NUCLEAR ANTIBODY TEST None Detected (None Detected)
--- NOTE | 2018-05-30 00:22 | DR.CARTERD ---
- Discharge Summary for: Discharge Summary for Date of:: 04/15/18 - Admission Date Date of Admission: 04/12/18 - Admission Diagnoses Admission Diagnosis: (1) Diffuse papular rash (2) Headache (3) UTI (urinary tract infection) (4) Purpura (5) History of unexplained fever - Discharge Date Discharge Date: 04/15/18 - Discharge Diagnoses Discharge Diagnosis: (1) Diffuse papular rash (2) Headache (3) UTI (urinary tract infection) (4) Purpura (5) History of unexplained fever - Hospital Course Hospital Course: DAY ONE, PATIENT IS A 43 YEAR OLD WHITE FEMALE WHO WAS AN ER ADMISSION AFTER SHE PRESENTED WITH COMPLAINTS OF RODRIGUEZ AND DIFFUSE RASH TO ENTIRE BODY WORSE OVER THE PAST WEEK. PT STATED SHE HAD ONSET OF RODRIGUEZ AND FEVER WITH "HEAT RASH" TO TO UPPER ARMS, SEEN IN ER IN [place] IN [facility] DIAGNOSED WITH UTI AND GIVEN KEFLEX. PT STATED RASH WORSENED AND SHE CONTINUED WITH FEVER UP TO 104. PT WENT TO [facility], ADMITTED FOR IV ATBX [facility]ERAPY AND GENTAMICIN ON 04/05. PT HAD DIFFUSE PAPULAR RASH WITH PUPURA, DIFFSE DARK PURPLE DISCOLOR TO BILATERAL THIGHS, UTI AND CO RODRIGUEZ. PT ADMITTED WITH CONTACT PRECAUTIONS, STARTED ON IV ZITHROMAX ANX ZOSYN IN ER. PT DENIES ANY HX OF DM, HTN, CAD. PT ADMITED TO SNORTING "ONE LINE OF METH" IN THE PAST 1-2 DAYS. DENIED IV DRUG USE RECENTLY, STATED OVER TWENTY YEARS. WE CONTINUED TO MONITOR PATIENT. 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 PT HAD UA ON ADMISSION WITH CULTURE PENDING. PT WAS CURRENTLY ON IV ATBX, GENTLE HYDRATION, WBC IMPROVED TO 12.4, BUN 22/CREAT 1.65 CRP IMPROVED FROM 92.5 ONADMISSION TO 51 THIS AM, PT AFEBRILE, DENIED RODRIGUEZ THIS AM OR NUCHAL RIGIDITY. RPR COLLECTED THIS AM. DAY THREE, WE CONTINUED WITH CURRENT PLAN OF TREATMENT. DAY FOUR, RASH HAS IMPROVED AND PATIENT IS FEELING BETTER DURING MORNING ROUNDS. PATIENT VOICES ZERO COMPLAINTS AT THIS TIME. ZERO SIGNS AND SYMPTOMS OF ACUTE DISTRESS NOTED. VITALS ARE STABLE. LABS REVIEWED AND DISCUSSED WITH PATIENT. WE PLANNED FOR DISCHARGE. INSTRUCTIONS FOR MEDICATIONS AND FOLLOW UP DISCUSSED WITH PATIENT AND FAMILY, BOTH VOICED UNDERSTANDING. PATIENT DISCHARGED HOME IN STABLE CONDITION WITH FAMILY. - Discharge Medications Discharge Medications: Home Medication List cephalexin 500 ng PO QID 04/12/18 [History] levofloxacin [Levaquin] 500 mg PO DAILY 04/12/18 [History] ondansetron HCl [Zofran] 4 mg PO TID PRN 04/12/18 [History] prednisone 10 mg PO BID #28 tab 04/15/18 [Rx] Prescriptions: prednisone Hermelindo Segura - Discharge Disposition Discharge Disposition: PATIENT TO FOLLOW UP WITH PCP DR. Christa HUBER IN ONE WEEK.
== END 2018-04-15 17:10 | disposition home or self-care (01) | DRG 813 ==
LOC: ER 05:18 → MED/SURG 08:06
PROVIDERS: ADMIT Internal Medicine; ATTEND Internal Medicine
DX: I87.2 Venous insufficiency (chronic) (peripheral); R21 Rash and other nonspecific skin eruption; E11.65 Type 2 diabetes mellitus with hyperglycemia; N39.0 Urinary tract infection, site not specified; R94.4 Abnormal results of kidney function studies; D69.2 Other nonthrombocytopenic purpura; R79.82 Elevated C-reactive protein (CRP); R70.0 Elevated erythrocyte sedimentation rate; I77.6 Arteritis, unspecified; R51 Headache
CPT/HCPCS: 36415; 36556; 71010; 71020; 71045; 71046; 71250; 74176; 74181; 80053; 80307; 81001; 82150; 82550; 82552; 83605; 83690; 83735; 84132; 85025; 85610; 85652; 86038; 86140; 86308; 86430; 86592; 87040; 87086; 96365; 96367; 96374; 96375; 99284; A4222; Q0169; G0434; J0456; J0696; J1200; J1885; J1956; J2270; J2930; J3490; J7030; J7050